=== PATIENT | female | born 1965 | race Caucasian/White ===

== ENCOUNTER 2018-12-14 08:51 | Emergency (ER) | payer MEDICAID ==
[2018-12-14] MEDS: LORAZEPAM 0.5 MG TAB PO (09:48)
[2018-12-14] MEDS: SOD CHLORIDE 0.9% 500 ML IV (09:51)
[2018-12-14] MEDS: KETOROLAC 15 MG INJ IV (09:53)
[2018-12-14] MEDS: ONDANSETRON 4 MG INJ IV (09:53)
[2018-12-14 09:54] LABS: ADD MAN DIFF? NO
[2018-12-14 09:57] LABS: WHITE BLOOD COUNT 10.4 10^3/ul (4.8-10.8)
[2018-12-14 09:57] LABS: BASOPHILS % 0.4 % (0.0-2.0); EOSINOPHILS # 0.1 10^3/ul (0.0-0.5); EOSINOPHILS % 1.1 % (0.0-7.0); HEMATOCRIT 40.8 % (37.0-47.0); HEMOGLOBIN 13.7 g/dl (12.0-16.0); LYMPHOCYTES # 2.9 10^3/ul (0.8-2.9); MEAN CORPUSCULAR HEMOGLOBIN 30.6 pg (29.0-33.0); MEAN CORPUSCULAR HGB CONC 33.6 g/dl (32.0-37.0); MEAN CORPUSCULAR VOLUME 91.1 fl (82.0-101.0); MEAN PLATELET VOLUME 11.9 fl (7.4-10.4); MONOCYTE # 0.5 10^3/ul (0.3-0.9); MONOCYTES % 4.4 % (0.0-11.0); NEUTROPHIL # 6.8 10^3/ul (1.6-7.5); NEUTROPHILS % 65.6 % (39.0-77.0); PLATELET COUNT 179 10^3/UL (140-415); RED BLOOD COUNT 4.48 10^6/ul (4.20-5.40); RED CELL DISTRIBUTION WIDTH 12.2 % (11.5-14.5)
[2018-12-14 10:04] LABS: ALANINE AMINOTRANSFERASE 37 IU/L (13-69); ALBUMIN 4.2 g/dl (3.3-4.9); ALBUMIN/GLOBULIN RATIO 1.16; ALKALINE PHOSPHATASE 125 IU/L (42-121); ANION GAP 14 (5-13); ASPARTATE AMINO TRANSFERASE 30 IU/L (15-46); BILIRUBIN,INDIRECT 0.4 mg/dl (0-1.1); BILIRUBIN,TOTAL 0.4 mg/dl (0.2-1.3); BLOOD UREA NITROGEN 18 mg/dl (7-20); CALCIUM 10.7 mg/dl (8.4-10.2); CARBON DIOXIDE 27 mmol/L (21-31); CHLORIDE 102 mmol/L (97-110); CREATININE 0.89 mg/dl (0.44-1.00); Estimated GFR > 60 mL/min (>60); GLUCOSE 146 mg/dl (70-220); LIPASE 98 U/L (23-300); POTASSIUM 4.3 mmol/L (3.5-5.1); SODIUM 143 mmol/L (135-144); TOTAL PROTEIN 7.8 g/dl (6.1-8.1)
[2018-12-14 10:14] LABS: TROPONIN-I < 0.012 ng/ml (0.000-0.120)
== END 2018-12-14 14:01 | disposition home or self-care (01) ==
LOC: E/R 08:51
DX: R07.9 Chest pain, unspecified (principal); F41.9 Anxiety disorder, unspecified; R42 Dizziness and giddiness; I10 Essential (primary) hypertension
CPT/HCPCS: 36415; 71045; 80053; 83690; 84484; 85025; 93005; 96361; 96374; 99285-25